=== PATIENT | female | born 1965 | race Hispanic/Latino ===

== ENCOUNTER 2018-06-04 23:28 | Emergency (ER) | payer SELFPAY ==
[~2018-06-04] VITALS: Ht 170.2 cm; Wt 83.9 kg
--- NOTE | 2018-06-05 00:25 | Diagnostic Imaging Report ---
KNEE LEFT THREE VIEWS - 3 views HISTORY: Pain COMPARISON: None available. FINDINGS: Bones: No acute displaced fracture. Osseous alignment is within normal limits. Tiny calcified densities adjacent to the tibial spine. Joints: The joint spaces are well-maintained. Soft tissues: The soft tissues appear unremarkable. IMPRESSION: No acute fracture or dislocation of the left knee. Tiny calcified densities adjacent to the tibial spine, could represent joint space loose bodies. Signed by: Dr. Juan Rothman MD on 06/05/2018 12:22 AM
[2018-06-05 00:35] VITALS: BP 175/73
== END 2018-06-05 00:46 | disposition home or self-care (01) ==
LOC: ER 23:28
DX: M25.562 Pain in left knee (principal); F17.210 Nicotine dependence, cigarettes, uncomplicated
CPT/HCPCS: 99283